=== PATIENT | female | born 1935 | race Caucasian/White ===

== ENCOUNTER 2022-11-16 09:56 | Outpatient (CLI) | payer MEDICARE, OTHER | END 2022-11-16 23:59 | disposition home or self-care (01) | LOC: RT 09:56 | PROVIDERS: ATTEND Internal Medicine Interventional Cardiology | DX: I70.0 Atherosclerosis of aorta (principal); R06.02 Shortness of breath; Z95.0 Presence of cardiac pacemaker; Z79.899 Other long term (current) drug therapy; Z87.891 Personal history of nicotine dependence | CPT/HCPCS: 71046; 94010; 94727; 94729; J7030; A6449 ==